=== PATIENT | male | born 1985 | race Caucasian/White ===

== ENCOUNTER 2017-03-25 12:38 | Emergency (ER) | payer BC ==
[~2017-03-25] VITALS: Wt 109.5 kg
[2017-03-25 14:55] VITALS: BP 138/82
== END 2017-03-25 13:45 | disposition home or self-care (01) ==
LOC: ED 12:38
DX: S61.012A Laceration without foreign body of left thumb without damage to nail, initial encounter (principal); Z23 Encounter for immunization; W23.0XXA Caught, crushed, jammed, or pinched between moving objects, initial encounter; Y92.008 Other place in unspecified non-institutional (private) residence as the place of occurrence of the external cause
CPT/HCPCS: 90715; A4550

== ENCOUNTER → 2021-10-29 | Outpatient (CLI) | payer BC | LOC: LAB 12:09 | DX: Z20.822 Contact with and (suspected) exposure to COVID-19 (principal) ==